=== PATIENT | male | born 1930 ===

== ENCOUNTER 2017-10-03 05:25 | Day surgery (SDC) | payer MEDICARE, OTHER ==
[2017-10-03] MEDS ORDERED: TROP 1%/CYCLOPEN 1%/PHENYL 2% DROPS ONE (05:53)
[2017-10-03] MEDS ORDERED: PROPARACAINE 0.5% OPHTH SOL 15 ML BTTL ONE (05:53)
[2017-10-03] MEDS ORDERED: MIDAZOLAM INJ 2 MG/2 ML VIAL ONE (07:10)
[2017-10-03] MEDS ORDERED: DEXAMETHASONE 0.1% OPHTH SOL 1 DROP LEFT_EYE ONE ×2 (07:46→08:12)
[2017-10-03] MEDS ORDERED: BRIMONIDINE 0.2% OPHTH DROPS LEFT_EYE ONE ×2 (07:47→08:12)
[2017-10-03] MEDS ORDERED: TOBRAMYCIN SULF 0.3 % OPHT SOL 1 DROP LEFT_EYE ONE ×2 (07:48→08:12)
== END 2017-10-03 08:50 | disposition home or self-care (01) ==
LOC: AMB 05:25
PROVIDERS: ATTEND Ophthalmology
DX: H25.12 Age-related nuclear cataract, left eye (principal); I10 Essential (primary) hypertension; Z79.899 Other long term (current) drug therapy
CPT/HCPCS: 00142; 66984; J2250

== ENCOUNTER 2017-10-17 06:01 | Day surgery (SDC) | payer MEDICARE, OTHER ==
[~2017-10-17 06:01] MED LIST: PROPARACAINE 0.5% OPHTH SOL 15 ML BTTL ONE; TROP 1%/CYCLOPEN 1%/PHENYL 2% DROPS ONE
[2017-10-17] MEDS ORDERED: MIDAZOLAM INJ 2 MG/2 ML VIAL ONE (06:58)
[2017-10-17] MEDS ORDERED: PROPARACAINE 0.5% OPHTH SOL 15 ML BTTL RIGHT_EYE ONE (07:20)
[2017-10-17] MEDS ORDERED: LIDOCAINE 1% PF 2 ML AMP INJ ONE (07:34)
[2017-10-17] MEDS ORDERED: BRIMONIDINE 0.2% OPHTH DROPS RIGHT_EYE ONE ×2 (07:35→07:40)
[2017-10-17] MEDS ORDERED: TOBRAMYCIN SULF 0.3 % OPHT SOL 1 DROP RIGHT_EYE ONE ×2 (07:35→07:40)
[2017-10-17] MEDS ORDERED: DEXAMETHASONE 0.1% OPHTH SOL 1 DROP RIGHT_EYE ONE ×2 (07:35→07:40)
== END 2017-10-17 08:05 | disposition home or self-care (01) ==
LOC: AMB 06:01
PROVIDERS: ATTEND Ophthalmology
DX: H25.11 Age-related nuclear cataract, right eye (principal); I10 Essential (primary) hypertension; Z79.899 Other long term (current) drug therapy
CPT/HCPCS: 66984; J2250